=== PATIENT | male | born 1940 | race Hispanic/Latino ===

== ENCOUNTER → 2024-12-17 | Outpatient (CLI) | payer MEDICARE, MEDICAID ==
--- NOTE | 2024-12-18 06:15 | HMCIMG ---
EXAMINATION: ULTRASOUND OF THE ABDOMEN WITH COLOR DOPPLER. CLINICAL HISTORY: Pain. COMPARISON: None. TECHNIQUE: Real-time grayscale ultrasound images of the abdomen. In addition, color Doppler is medically necessary to perform in order to evaluate vascularity and blood flow. FINDINGS: Liver: Normal in caliber, the right hepatic lobe measures 15.5 cm in the craniocaudal dimension. There is normal echogenicity of the hepatic parenchyma. There is no focal hepatic abnormality or intrahepatic biliary ductal dilatation. There is normal spectral Doppler of the main portal vein. Gallbladder: Post cholecystectomy status. Common bile duct is normal in caliber, measuring 0.51 cm. Spleen is normal in caliber and measures 8.9 cm in craniocaudal dimension. No focal lesions. Pancreas: Normal in caliber and echotexture. No calcification or dilated pancreatic duct. The kidneys are normal in caliber, the right kidney measures 10.2 x 4.7 x 5.0 cm and the left kidney measures 10.4 x 4.8 x 5.7 cm in craniocaudal, AP, and transverse dimensions respectively. There is normal renal cortical thickness, and cortical echogenicity. There is no renal calculus or hydronephrosis. There is a simple cortical cyst that measures 1.8 x 1.4 x 1.6 cm in the right renal upper pole. There are simple cortical cysts that measure 2.0 x 1.9 x 1.9 cm in the mid pole and 2.0 x 2.2 x 1.5 cm in the upper pole of the left kidney. The aorta is obscured by overlying bowel gas. Visualized aspects of the inferior vena cava are unremarkable. IMPRESSION: Post cholecystectomy status.Bilateral simple renal cortical cysts. No hydronephrosis. /[place]
== END | disposition home or self-care (01) ==
LOC: RAH 09:16
PROVIDERS: ATTEND Internal Medicine
DX: N28.1 Cyst of kidney, acquired (principal); R10.9 Unspecified abdominal pain; Z90.49 Acquired absence of other specified parts of digestive tract
CPT/HCPCS: 76700

== ENCOUNTER → 2024-12-31 | Outpatient (CLI) | payer MEDICARE, MEDICAID ==
--- NOTE | 2024-12-31 13:45 | NUR ---
MBSS COMPLETED (OUTPATIENT). No aspiration/no penetrations. RECOMMENDATIONS: Regular solids, thin liquids and pills whole with liquids as tolerated. DIAGNOSTIC FINDINGS: Oropharyngeal swallowing is within functional limits. No penetrations or aspiration observed. Pt with mild pharyngeal residue cleared with re-swallows. Otherwise, exam was negative for etiology of patients c/o globus sensation/choking with oral intake. MAY WANT TO CONSIDER GI CONSULT FOR FURTHER EVALUATION OF ESOPHAGUS AND COMPLAINS OF GLOBUS SENSATION. DIGITAL X [employer]AY SERVICE ENGINEER reviewed results and recommendations with patient. DIGITAL X RAY SERVICE ENGINEER educated patient on risks and consequences of aspiration. Speech therapy not warranted at this time. All questions answered. Addendum: 01/01/[address]ANNA LYNCH Amended: Links added.
--- NOTE | 2025-01-07 09:49 | HMCIMG ---
MODIFIED BARIUM SWALLOW W CINE REASON: DYSPHAGIA; Feeding difficulties, unspecified FINDINGS: Fluoroscopic assistance was provided to the speech pathologist while performing examination. For findings and dietary recommendations, refer to speech pathologist's report. FLUORO TIME: 3.1 minutes fluoro time IMPRESSION: Modified barium swallow as described.
== END | disposition home or self-care (01) ==
LOC: RAH 13:06
PROVIDERS: ATTEND Internal Medicine
DX: R13.10 Dysphagia, unspecified (principal); R63.30 Feeding difficulties, unspecified
CPT/HCPCS: 74230; 92611